=== PATIENT | female | born 1970 | race Caucasian/White ===

== ENCOUNTER 2023-06-17 15:57 | Emergency (ER) | payer OTHER, SELFPAY ==
[2023-06-17 16:00] VITALS: BP 128/85; PULSE 118; RESP 18; TEMP 36.5; O2SAT 98; BMI 38.2
--- NOTE | 2023-06-17 16:06 | CT_ITS ---
The [address] [address] Patient Name: MAZIN HIGHTOWER MRN: [facility]:[id number] date: 1970 Sex: F Assigned Patient Location: ED.MAIN Current Patient Location: ED.MAIN Accession/Order Number: [id number] Exam Date: 06/17/2023 16:15 Report Date: 06/17/2023 16:44 At the request of: MEGHAN DOTY Procedure: CT abdomen pelvis wo con EXAM: CT abdomen pelvis wo con HISTORY: Flank pain COMPARISON: None. FINDINGS: Order Packer: No pertinent findings, which are not already discussed below. Tubes/lines/drains: None. CHEST: Lungs: Clear. Mediastinum: No cardiomegaly or significant pericardial effusion. Small hiatal hernia. ABDOMEN: Liver: Unremarkable. Gallbladder and Biliary Tree: Unremarkable. Spleen: Small splenule along the medial aspect of the spleen.. Pancreas: Unremarkable. Adrenal Glands: Unremarkable. Kidneys, Ureters, Bladder: No urolithiasis. No hydronephrosis or hydroureterosis. No significant perinephric stranding. Decompressed bladder. Gastrointestinal: No mural thickening or inflammatory changes. No dilated loops of small or large bowel. Normal appendix. Reproductive organ(s): Presumed hysterectomy. Lymphatic: No concerning retroperitoneal, mesenteric, or inguinal adenopathy. Vessels: Unremarkable. BONES AND SOFT TISSUE: Bones: No acute fracture. No concerning osseous lesions. Moderate L5-S1 disc height loss. Soft Tissue: Within normal limits. CT/CT abdomen pelvis wo con IMPRESSION: 1. No acute intra-abdominal/pelvic findings. 2. No evidence for nephrolithiasis or obstructive nephropathy. Electronically authenticated by: NICKOLAS NORRIS Date: 06/17/2023 16:44
--- NOTE | 2023-06-17 16:14 | ED_ITS ---
HPI - General Adult General Chief complaint: Urogenital-Female Stated complaint: FLANK PAIN Time Seen by Provider: 06/17/23 15:58 Source: patient Mode of arrival: walk-in Limitations: no limitations History of Present Illness HPI narrative: patient is a 52-year-old female presents to the emergency department for the evaluation of right-sided abdominal pain and urinary symptoms for the past five days. She states she was initially seen at urgent care and was diagnosed with urinary tract infection, she states urgent care told her she had a lot of blood in her urine. She was placed on Keflex which she has been taking 3 times a day for the last four days. She went to [facility] emergency department 4 days ago but did not have any testing performed. She reports pain radiating from the right lower quadrant of the abdomen into the right flank. She has had fevers as high as 100.9 Fahrenheit, she reports nausea with no vomiting. She was also prescribed Pyridium. She has had a total hysterectomy. Related Data Previous Rx's Medication Instructions Recorded docusate sodium 100 mg capsule 100 mg PO BID #14 caps 06/17/23 (Colace) famotidine 20 mg tablet (Pepcid) 20 mg PO BID #10 tabs 06/17/23 hyoscyamine sulfate 0.125 mg 0.125 mg PO Q6H PRN abdominal pain 06/17/23 tablet (Levsin) #12 tabs ondansetron 4 mg disintegrating 4 mg PO Q6H PRN nausea and 06/17/23 tablet vomiting #12 tabs oxycodone-acetaminophen 5 mg-325 1 tab PO Q6H PRN pain #15 tabs 06/17/23 mg tablet (Percocet) Allergies Allergy/AdvReac Type Severity Reaction Status Date / Time sulfamethoxazole AdvReac Severe Anaphylaxis Verified 06/17/23 16:07 [From Bactrim] sumatriptan [From Imitrex] AdvReac Severe Anaphylaxis Verified 06/17/23 16:07 trimethoprim [From Bactrim] AdvReac Severe Anaphylaxis Verified 06/17/23 16:07 Review of Systems ROS Constitutional Reports: fever; Denies: chills Ears, nose, mouth, and throat Denies: throat pain Cardiovascular Denies: chest pain Respiratory Denies: shortness of breath or cough Gastrointestinal Reports: abdominal pain and nausea; Denies: vomiting or c onstipation Genitourinary Reports: painful urination Musculoskeletal Reports: back pain Integumentary/Breast Denies: rash Neurological Denies: headache Hematologic/Lymphatic Denies: easy bruising Exam Narrative Exam Narrative: Gen.: Awake, alert, in no distress Head: Normocephalic, atraumatic ENT: Moist mucous membranes Respiratory: No respiratory distress, lungs clear bilaterally Cardio: tachycardia Gastrointestinal: Abdomen is soft, nondistended diffusely tender in the right lower quadrant, right lateral abdomen and right flank with no McBurney's point tenderness. No guarding or rebound Extremities: Moves extremities equally, no injuries noted Psych: Normal mood and affect Neuro: No focal neuro deficit Skin: Warm, dry, intact Constitutional Vital Signs, click to edit/add: Last Vital Signs Temp 97.7 F 06/17/23 16:00 Pulse 100 H 06/17/23 16:36 Resp 22 06/17/23 16:36 BP 114/68 06/17/23 16:36 Pulse Ox 100 06/17/23 16:36 O2 Del Method Room Air 06/17/23 16:36 Course Vital Signs Vital signs: Vital Signs Temperature 97.7 F 06/17/23 16:00 Pulse Rate 118 H 06/17/23 16:00 Respiratory Rate 18 06/17/23 16:00 Blood Pressure 128/85 06/17/23 16:00 Pulse Oximetry 98 06/17/23 16:00 Oxygen Delivery Method Room Air 06/17/23 16:00 Temperature 97.7 F 06/17/23 16:00 Pulse Rate 100 H 06/17/23 16:36 Respiratory Rate 22 06/17/23 16:36 Blood Pressure 114/68 06/17/23 16:36 Pulse Oximetry 100 06/17/23 16:36 Oxygen Delivery Method Room Air 06/17/23 16:36 Medical Decision Making MDM Narrative Medical decision making narrative: lab studies within normal limits although lipase is elevated. Patient with no evidence of pancreatitis, gallstones or cholecystitis on CT scan. I discussed this result with her and her daughter at bedside. Patient was made aware that the elevated lipase may represent acute pancreatitis but may also be a side effect of her prazosin. She states she has been on that medication for years, she has no history of pancreatitis. She was instructed to follow-up with her PCP for repeat lipase, and she was also instructed to follow a clear liquid diet for forty-eight hours with presumptive treatment for pancreatitis although at this time I am not convinced that the elevated lipase represents acute pancreatitis. She will follow-up with her PCP and return to the Emergency Room if symptoms change or worsen. CT scan does show moderate stool on the right side of the abdomen which may be contributing to the patient's symptoms, so she will be treated with a short course of analgesics, stool softeners, Zofran, Pepcid and Levsin. abdomen is soft and benign at discharge. patient reevaluated by attending physician prior to discharge Medical Records Medical records reviewed: Yes I reviewed the patient's medical records Lab Data Lab results reviewed: Yes I reviewed the patient's lab results Labs: Lab Results 06/17/23 06/17/23 Range/Units 10:16 16:20 WBC 7.4 (4.0-11.0) 10^3/uL RBC 3.96 L (4.20-5.40) 10^6/uL Hgb 12.4 (12.0-16.0) g/dL Hct 38.2 (36.0-48.0) % MCV 96.5 (81.0-99.0) fL MCH 31.3 (26.7-34.0) pg MCHC 32.5 (29.9-35.2) g/dL RDW 14.0 (11.0-15.0) % Plt Count 292 (150-450) 10^3/uL MPV 8.3 L (9.5-13.5) fL Neut % (Auto) 52.7 (43.0-75.0) % Lymph % (Auto) 35.2 (20.5-60.0) % Sanders % (Auto) 7.5 (1.7-12.0) % Eos % (Auto) 3.4 (0.9-7.0) % Baso % (Auto) 0.9 (0.2-2.0) % Neut # (Auto) 3.9 (1.4-6.5) 10^3/uL Lymph # (Auto) 2.6 (1.2-3.8) 10^3/uL Sanders # (Auto) 0.6 (0.3-0.8) 10^3/uL Eos # (Auto) 0.3 (0.0-0.7) 10^3/uL Baso # (Auto) 0.1 (0.0-0.1) 10^3/uL Abs Immat Gran (auto) 0.02 (0.00-0.03) 10^3/uL Imm/Tot Granulo (auto) 0.3 (0.0-0.5) % Sodium 138 (136-145) mmol/L Potassium 3.8 (3.5-5.1) mmol/L Chloride 103 (98-107) mmol/L Carbon Dioxide 24.4 (21.0-32.0) mmol/L Anion Gap 14.4 BUN 20.0 H (7.0-18.0) mg/dL Creatinine 0.93 (0.55-1.02) mg/dL Est GFR ( Amer) >60 (>=60) Est GFR (Non-Af Amer) >60 (>=60) BUN/Creatinine Ratio 21.5 Glucose 98 (74-106) mg/dL Lactate 0.7 (0.4-2.0) mmol/L Calcium 8.7 (8.5-10.1) mg/dL Total Bilirubin 0.3 (0.2-1.0) mg/dL AST 17 (15-37) U/L ALT 25 (14-59) U/L Alkaline Phosphatase 89 (46-116) U/L Total Protein 7.2 (6.4-8.2) g/dL Albumin 3.7 (3.4-5.0) g/dL Globulin 3.5 g/dL Albumin/Globulin Ratio 1.1 Lipase 483.0 H (16.0-77.0) U/L Urine Color Dk. yellow (YELLOW) Urine Clarity Clear (CLEAR) Urine pH 5.5 (5.0-9.0) Ur Specific [place] >=1.030 A (1.005-1.025) Urine Protein Negative (NEG/TRACE) mg/dL Urine Glucose (UA) Negative (NEGATIVE) mg/dL Urine Ketones Trace A (NEGATIVE) mg/dL Urine Occult Blood Negative (NEGATIVE) Urine Nitrite Negative (NEGATIVE) Urine Bilirubin Negative (NEGATIVE) Urine Urobilinogen 0.2 (0.2-1.0) EU/dL Ur Leukocyte Esterase Negative (NEGATIVE) Imaging Data CT scan - abdomen: Attestation: I have reviewed the pertinent imaging results. Radiologist's impression: Procedure: CT abdomen pelvis wo con EXAM: CT abdomen pelvis wo con HISTORY: Flank pain COMPARISON: None. FINDINGS: Machine Tool Rebuilder: No pertinent findings, which are not already discussed below. Tubes/lines/drains: None. CHEST: Lungs: Clear. Mediastinum: No cardiomegaly or significant pericardial effusion. Small hiatal hernia. ABDOMEN: Liver: Unremarkable. Gallbladder and Biliary Tree: Unremarkable. Spleen: Small splenule along the medial aspect of the spleen.. Pancreas: Unremarkable. Adrenal Glands: Unremarkable. Kidneys, Ureters, Bladder: No urolithiasis. No hydronephrosis or hydroureterosis. No significant perinephric stranding. Decompressed bladder. Gastrointestinal: No mural thickening or inflammatory changes. No dilated loops of small or large bowel. Normal appendix. Reproductive organ(s): Presumed hysterectomy. Lymphatic: No concerning retroperitoneal, mesenteric, or inguinal adenopathy. Vessels: Unremarkable. BONES AND SOFT TISSUE: Bones: No acute fracture. No concerning osseous lesions. Moderate L5-S1 disc height loss. Soft Tissue: Within normal limits. IMPRESSION: 1. No acute intra-abdominal/pelvic findings. 2. No evidence for nephrolithiasis or obstructive nephropathy. Electronically authenticated by: NICKOLAS NORRIS Date: 06/17/2023 16:44 Discharge Plan Discharge Chief Complaint: Urogenital-Female Clinical Impression: Acute right flank pain, Elevated lipase Patient Disposition: Home, Self-Care Time of Disposition Decision: 17:08 Condition: Good Prescriptions / Home Meds: New oxycodone-acetaminophen [Percocet] 5-325 mg tablet 1 tab PO Q6H PRN (Reason: pain) Qty: 15 0RF Rx Instructions: DX: R10.9 famotidine [Pepcid] 20 mg tablet 20 mg PO BID Qty: 10 0RF hyoscyamine sulfate [Levsin] 0.125 mg tablet 0.125 mg PO Q6H PRN (Reason: abdominal pain) Qty: 12 0RF ondansetron 4 mg tablet,disintegrating 4 mg PO Q6H PRN (Reason: nausea and vomiting) Qty: 12 0RF docusate sodium [Colace] 100 mg capsule 100 mg PO BID Qty: 14 0RF Instructions: Pancreatitis (ED), Acute Abdominal Pain (ED) Additional Instructions: Follow up closely with your doctor to have your lipase rechecked. Follow a clear liquid diet for 48 hours Stand Alone Forms: Portal Instructions Referrals: Physician,Non-Staff, MD [Primary Care Provider] - 1 week
[2023-06-17 16:21] LABS: Basophils Absolute Auto 0.1 10^3/uL (0.0-0.1); Basophils Percent Auto 0.9 % (0.2-2.0); Eosinophils Absolute Auto 0.3 10^3/uL (0.0-0.7); Eosinophils Percent Auto 3.4 % (0.9-7.0); Hematocrit 38.2 % (36.0-48.0); Hemoglobin 12.4 g/dL (12.0-16.0); Immature Granulocytes Abs Auto 0.02 10^3/uL (0.00-0.03); Immature Granulocytes Pct Auto 0.3 % (0.0-0.5); Lymphocytes Absolute Auto 2.6 10^3/uL (1.2-3.8); Lymphocytes Percent Auto 35.2 % (20.5-60.0); Mean Corpuscular HGB Conc 32.5 g/dL (29.9-35.2); Mean Corpuscular Hemoglobin 31.3 pg (26.7-34.0); Mean Corpuscular Volume 96.5 fL (81.0-99.0); Mean Platelet Volume 8.3 fL (9.5-13.5); Monocytes Absolute Auto 0.6 10^3/uL (0.3-0.8); Monocytes Percent Auto 7.5 % (1.7-12.0); Neutrophils Absolute Auto 3.9 10^3/uL (1.4-6.5); Neutrophils Percent Auto 52.7 % (43.0-75.0); Platelet Count 292 10^3/uL (150-450); Red Blood Count 3.96 10^6/uL (4.20-5.40); White Blood Count 7.4 10^3/uL (4.0-11.0)
[2023-06-17] MEDS: 0.9 % SODIUM CHLORIDE 1,000 ML 1000 ML IV (16:25)
[2023-06-17] MEDS: ONDANSETRON PF 4 MG/2 ML VIAL IV (16:25)
[2023-06-17] MEDS: KETOROLAC TROMETHAMINE 30 MG/ML VIAL IVP (16:28)
[2023-06-17] MEDS: MORPHINE SULFATE 4 MG/ML VIAL IV (16:31)
[2023-06-17 16:36] VITALS: BP 114/68; PULSE 100; RESP 22; O2SAT 100
[2023-06-17 16:36] LABS: Alanine Aminotransferase 25 U/L (14-59); Albumin Globulin Ratio 1.1; Albumin Level 3.7 g/dL (3.4-5.0); Alkaline Phosphatase 89 U/L (46-116); Anion Gap 14.4; Aspartate Amino Transferase 17 U/L (15-37); BUN Creatinine Ratio 21.5; Bilirubin Total 0.3 mg/dL (0.2-1.0); Calcium 8.7 mg/dL (8.5-10.1); Carbon Dioxide 24.4 mmol/L (21.0-32.0); Chloride 103 mmol/L (98-107); Estimated GFR (African America >60 (>=60); Estimated GFR (Non-African Ame >60 (>=60); Globulin 3.5 g/dL; Glucose 98 mg/dL (74-106); Potassium 3.8 mmol/L (3.5-5.1); Sodium 138 mmol/L (136-145); Total Protein 7.2 g/dL (6.4-8.2)
[2023-06-17 16:38] LABS: Lactate/Lactic Acid 0.7 mmol/L (0.4-2.0)
[2023-06-17 16:47] LABS: Bilirubin Urine NEGATIVE (NEGATIVE); Blood Urine NEGATIVE (NEGATIVE); Clarity Urine CLEAR (CLEAR); Color Urine DK. YELLOW (YELLOW); Glucose Urine UA NEGATIVE (NEGATIVE); Ketones Urine TRACE mg/dL (NEGATIVE); Leukocyte Esterase Urine NEGATIVE (NEGATIVE); Nitrite Urine NEGATIVE (NEGATIVE); Protein Urine NEGATIVE (NEG/TRACE); Specific Gravity Urine >=1.030 (1.005-1.025); Urine Microscopic Indicated NO; Urobilinogen Urine 0.2 EU/dL (0.2-1.0); pH Urine 5.5 (5.0-9.0)
[2023-06-17] MEDS: HYOSCYAMINE SULFATE 0.125 MG TAB.SUBL SL (17:20)
== END 2023-06-17 17:39 | disposition home or self-care (01) ==
PROVIDERS: Physician Assistant; Emergency Provider Emergency Medicine Emergency Medical Services
DX: R10.9 Unspecified abdominal pain (principal); R74.8 Abnormal levels of other serum enzymes; Z87.440 Personal history of urinary (tract) infections; Z90.710 Acquired absence of both cervix and uterus; Z79.899 Other long term (current) drug therapy
CPT/HCPCS: 36415; 74176; 80053; 81003; 83605; 83690; 85025; 96374; 96375; 99285

== ENCOUNTER 2024-02-07 11:54 | Emergency (ER) | payer OTHER, SELFPAY ==
[2024-02-07 12:04] VITALS: BP 118/91; PULSE 104; TEMP 36.6; O2SAT 99; BMI 36.8
--- NOTE | 2024-02-07 12:13 | ECG_ITS ---
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
--- NOTE | 2024-02-07 13:06 | XR_ITS ---
[address] [address] Patient Name: MAZIN HIGHTOWER MRN: [id number] date: 1970 Sex: F Assigned Patient Location: ER Current Patient Location: ER Accession/Order Number: [id number] Exam Date: 02/07/2024 13:20 Report Date: 02/07/2024 14:28 At the request of: RONN RAMOS Procedure: XR clavicle LT EX EXAM: XR clavicle LT HISTORY: Fall COMPARISON: None. FINDINGS/IMPRESSION: 1. No acute fracture or dislocation 2. No acute fracture of the clavicle. Normal alignment of the acromioclavicular joint and sternoclavicular joint. Electronically authenticated by: DIMAS LORA Date: 02/07/2024 14:28
--- NOTE | 2024-02-07 13:06 | XR_ITS ---
The [place] [id number] Patient Name: MAZIN HIGHTOWER MRN: [id number] date: 1970 Sex: F Assigned Patient Location: ER Current Patient Location: ER Accession/Order Number: [id number] Exam Date: 02/07/2024 13:20 Report Date: 02/07/2024 14:59 At the request of: RONN RAMOS Procedure: XR ribs LT min 3V w CXR1V EXAM: XR ribs LT min 3V w CXR1V HISTORY: Fall COMPARISON: None. FINDINGS/IMPRESSION: 1. No acute fracture or dislocation 2. Lungs are clear. No pneumothorax, no pleural effusion. 3. Heart size and mediastinal contours are normal. 4. Upper abdominal bowel gas pattern is nonspecific. Electronically authenticated by: DIMAS LORA Date: 02/07/2024 14:59
--- NOTE | 2024-02-07 13:06 | XR_ITS ---
The [address] [address] Patient Name: MAZIN HIGHTOWER MRN: [id number] date: 1970 Sex: F Assigned Patient Location: ER Current Patient Location: ED.MAIN Accession/Order Number: [id number] Exam Date: 02/07/2024 13:20 Report Date: 02/07/2024 14:26 At the request of: RONN RAMOS Procedure: XR shoulder LT min 2V EXAM: XR shoulder LT min 2V HISTORY: Fall COMPARISON: None. TECHNIQUE: 3 views of the left shoulder XR/XR shoulder LT min 2V IMPRESSION: No acute fracture or dislocation or shoulder separation. Joint spaces are well-maintained. Soft tissues are grossly unremarkable. Electronically authenticated by: LUIS YADAV Date: 02/07/2024 14:26
[2024-02-07] MEDS: HYDROCODONE/ACET 5-325 MG TABLET 1 TAB PO (13:29)
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
== END 2024-02-07 15:09 | disposition home or self-care (01) ==
PROVIDERS: Emergency Provider Emergency Medicine Emergency Medical Services; PCP Family Medicine
DX: S40.012A Contusion of left shoulder, initial encounter (principal); S40.022A Contusion of left upper arm, initial encounter; V19.88XA Pedal cyclist (driver) (passenger) injured in other specified transport accidents, initial encounter
CPT/HCPCS: 71101; 73000; 73030; 93005; 99284